=== PATIENT | female | born 1995 | race Caucasian/White ===

== ENCOUNTER → 2019-03-14 | Outpatient (CLI) | payer OTHER | LOC: LAB 15:03 → LAB SHORT 15:03 | DX: Z34.80 Encounter for supervision of other normal pregnancy, unspecified trimester (principal) | CPT/HCPCS: 83036 ==

== ENCOUNTER → 2019-04-11 | Outpatient (CLI) | payer OTHER ==
[2019-04-14 02:11] LABS: CHLAMYDIA TRACHOMATIS, NAA Negative (Negative); NEISSERIA GONORRHOEAE, NAA Negative (Negative)
== END ==
LOC: LAB 19:17 → LAB SHORT 19:17
PROVIDERS: Registered Nurse Community Health
DX: Z34.80 Encounter for supervision of other normal pregnancy, unspecified trimester (principal)
CPT/HCPCS: 87491; 87591

== ENCOUNTER → 2019-06-06 | Outpatient (CLI) | payer OTHER ==
[~2019-06-06] MED LIST: ALBU90OI INH; Zithromax250 MG PO
[2019-06-06 19:55] LABS: Hematocrit 31.8 % (33.0-51.0); Hemoglobin 9.7 g/dL (11.5-16.0)
== END ==
LOC: LAB 19:07 → LAB SHORT 19:07 → LAB FUT 06-05 11:10 → EDSTATUS 06-05 11:10
PROVIDERS: Registered Nurse Community Health
DX: Z34.80 Encounter for supervision of other normal pregnancy, unspecified trimester (principal)
CPT/HCPCS: 82950; 85014; 85018

== ENCOUNTER 2020-03-27 16:24 | Emergency (ER) | payer OTHER ==
[~2020-03-27] VITALS: Ht 152.4 cm; Wt 104.3 kg
[~2020-03-27 16:24] MED LIST changes: +IBUP800 PO; +Percocet 5-3251 EACH PO
[2020-03-27 17:56] LABS: BASOPHILS ABSOLUTE AUTO 0.07 K/mm3 (0.00-0.23); BASOPHILS PERCENT AUTO 1 % (0-2); EOSINOPHILS ABSOLUTE AUTO 0.13 K/mm3 (0.00-0.68); EOSINOPHILS PERCENT AUTO 1 % (0-6); Hematocrit 36.3 % (33.0-51.0); Hemoglobin 11.2 g/dL (11.5-16.0); IMMATURE GRAN ABSOLUTE AUTO 0.03 K/mm3 (0.00-0.10); IMMATURE GRAN PERCENT AUTO 0 % (0-1); LYMPHOCYTES ABSOLUTE AUTO 1.85 K/mm3 (0.84-5.20); LYMPHOCYTES PERCENT AUTO 17 % (21-46); MONOCYTES ABSOLUTE AUTO 0.67 K/mm3 (0.16-1.47); MONOCYTES PERCENT AUTO 6 % (4-13); Mean Corpuscular HGB 22.3 pg (26.0-34.0); Mean Corpuscular HGB Conc 30.9 g/dL (31.5-36.5); Mean Corpuscular Volume 72 fL (80-100); Mean Platelet Volume 10.5 fL (9.1-12.4); NEUTROPHILS ABSOLUTE AUTO 8.19 K/mm3 (1.96-9.15); NEUTROPHILS PERCENT AUTO 75 % (41-73); Platelet Count 370 K/mm3 (150-400); RDW Coefficient Variation 18.9 % (11.7-14.2); RDW Standard Deviation 48.4 fL (35.1-46.3); Red Blood Cell Count 5.02 M/mm3 (3.80-5.20); White Blood Cell Count 10.94 K/mm3 (4.00-11.30)
[2020-03-27 18:13] LABS: Alanine Aminotransfer (ALT/SGP 24 U/L (12-78); Albumin, Blood 3.3 g/dL (3.4-5.0); Albumin/Globulin Ratio 0.8 (0.8-1.8); Alk Phos 149 U/L (50-136); Anion Gap 5 mmol/L (6-16); Aspartate Aminotrans (AST/SGOT 11 U/L (12-37); Bilirubin, Total 0.1 mg/dL (0.1-1.0); Blood Urea Nitrogen 17 mg/dL (8-24); Bun/Creatinine Ratio 16.8 (12.0-20.0); CO2, Blood 28 mmol/L (21-32); Chloride, Blood 110 mmol/L (98-108); Creatinine, Blood 1.01 mg/dL (0.40-1.00); Globulin, Blood 4.4 g/dL (2.2-4.0); Glomerular Filtration Rate >60 (60-); Glucose, Blood 98 mg/dL (70-99); Potassium, Blood 3.7 mmol/L (3.5-5.5); Sodium, Blood 143 mmol/L (136-145); Total Protein, Blood 7.7 g/dL (6.4-8.2)
== END 2020-03-27 18:59 | disposition home or self-care (01) ==
LOC: ER 16:24
PROVIDERS: Physician Assistant
DX: G44.209 Tension-type headache, unspecified, not intractable (principal)
CPT/HCPCS: 36415; 80053; 85025; 96374; 99283-25; J1885

== ENCOUNTER 2021-01-17 12:39 | Emergency (ER) | payer OTHER ==
[~2021-01-17] VITALS: Ht 152.4 cm; Wt 97.5 kg
== END 2021-01-17 14:38 | disposition home or self-care (01) ==
LOC: ER 12:39
DX: S93.401A Sprain of unspecified ligament of right ankle, initial encounter (principal); S93.601A Unspecified sprain of right foot, initial encounter; W22.8XXA Striking against or struck by other objects, initial encounter
CPT/HCPCS: 73630; 99283-25

== ENCOUNTER → 2022-01-28 | Outpatient (CLI) | payer OTHER ==
[2022-01-30 04:10] LABS: CHLAMYDIA TRACHOMATIS, NAA Negative (Negative)
== END | disposition home or self-care (01) ==
LOC: LAB 14:13 → LAB SHORT 14:13
PROVIDERS: Registered Nurse Community Health
DX: Z34.91 Encounter for supervision of normal pregnancy, unspecified, first trimester (principal)
CPT/HCPCS: 87491; 87591; G0123

== ENCOUNTER 2022-04-21 17:15 | Observation (INO) | payer OTHER ==
[~2022-04-21] VITALS: Ht 157.5 cm; Wt 109.5 kg
[~2022-04-21 17:15] MED LIST changes: +CEFD300 PO
[2022-04-21 18:19] LABS: BASOPHILS ABSOLUTE AUTO 0.04 K/mm3 (0.00-0.23); BASOPHILS PERCENT AUTO 1 % (0-2); EOSINOPHILS ABSOLUTE AUTO 0.07 K/mm3 (0.00-0.68); EOSINOPHILS PERCENT AUTO 1 % (0-6); Hematocrit 28.5 % (33.0-51.0); Hemoglobin 9.4 g/dL (11.5-16.0); IMMATURE GRAN ABSOLUTE AUTO 0.01 K/mm3 (0.00-0.10); IMMATURE GRAN PERCENT AUTO 0 % (0-1); LYMPHOCYTES ABSOLUTE AUTO 0.89 K/mm3 (0.84-5.20); LYMPHOCYTES PERCENT AUTO 16 % (21-46); MONOCYTES ABSOLUTE AUTO 0.63 K/mm3 (0.16-1.47); MONOCYTES PERCENT AUTO 11 % (4-13); Mean Corpuscular Volume 79 fL (80-100); Mean Platelet Volume 9.7 fL (9.1-12.4); NEUTROPHILS ABSOLUTE AUTO 3.91 K/mm3 (1.96-9.15); NEUTROPHILS PERCENT AUTO 70 % (41-73); Platelet Count 241 K/mm3 (150-400); RDW Coefficient Variation 15.4 % (11.7-14.2); RDW Standard Deviation 44.2 fL (35.1-46.3); Red Blood Cell Count 3.62 M/mm3 (3.80-5.20); White Blood Cell Count 5.55 K/mm3 (4.00-11.30)
[2022-04-21 18:45] LABS: Source, Urine Clean Catch
[2022-04-21 19:14] LABS: Appearance, Urine Hazy (Clear); Bilirubin, Urine Neg (Neg); Blood, Urine 5+ (Neg); Color, Urine Amber (P-Yellow); Glucose Qualitative, Urine Neg (Neg); Ketones, Urine Neg (Neg); Leukocyte Esterase, Urine Neg (Neg); Nitrite, Urine Neg (Neg); Protein, Urine 2+ (Neg); Specific Gravity, Urine 1.015 (1.003-1.022); Urobilinogen, Urine NORM (Normal); pH, Urine 6.5 (5.0-8.0)
[2022-04-21 19:21] LABS: Albumin, Blood 2.4 g/dL (3.4-5.0); Albumin/Globulin Ratio 0.6 (0.8-1.8); Bilirubin, Total 0.3 mg/dL (0.1-1.0); Bun/Creatinine Ratio 15.5 (12.0-20.0); Calcium, Blood 8.5 mg/dL (8.5-10.1); Creatinine, Blood 0.78 mg/dL (0.40-1.00); Globulin, Blood 4.2 g/dL (2.2-4.0); Potassium, Blood 3.7 mmol/L (3.5-5.5); Total Protein, Blood 6.6 g/dL (6.4-8.2)
[2022-04-21 19:31] LABS: Bacteria Few /hpf; Red Blood Cells, Urine 50-100 /hpf (0-2); Squamous Epithelial Cells Few /hpf (Few); White Blood Cells, Urine 0-2 /hpf (0-5)
--- NOTE | 2022-04-22 07:30 | NUR ---
pt blood product consent signed, pt has 2 units of blood type and crossed to give if she starts bleeding, pt denies any bleeding, repors the last few times scant on her toilet paper, talked about linda red bleeding, pink discharge or brown brick colored blood. pt will save toilet paper for rn to see due to scant vag bleeding pt has a regular breakfast food tray at bedside
--- NOTE | 2022-04-22 08:15 | NUR ---
PT UP TO BATHROOM, REPORTS JUST A SCANT AMOUNT OF OLD BROWN COLOR ON TOILET PAPER, WE DISCUSSED THIS IS HER OLD BLOOD FROM YESTERDAY, PT DENIES ANY NEW GILES RED BLEEDING, PT IS A LOW FOWLERS TO A LOW MED FOWLERS IN BED, ENCOURAGED NOT TO SIT STRAIGHT UP ON CERVIX.
--- NOTE | 2022-04-22 11:45 | NUR ---
Assumed care of Pt. Pt here for pre term bleeding with placenta previa. Pt remains stable at this and provider plans D/C home later this shift if bleeding remains stable. Pt educated on S&S of when to notify nurse.
[2022-04-22 14:25] LABS: BASOPHILS ABSOLUTE AUTO 0.04 K/mm3 (0.00-0.23); BASOPHILS PERCENT AUTO 1 % (0-2); EOSINOPHILS ABSOLUTE AUTO 0.08 K/mm3 (0.00-0.68); EOSINOPHILS PERCENT AUTO 1 % (0-6); Hematocrit 30.4 % (33.0-51.0); Hemoglobin 9.8 g/dL (11.5-16.0); IMMATURE GRAN ABSOLUTE AUTO 0.01 K/mm3 (0.00-0.10); IMMATURE GRAN PERCENT AUTO 0 % (0-1); LYMPHOCYTES ABSOLUTE AUTO 1.32 K/mm3 (0.84-5.20); LYMPHOCYTES PERCENT AUTO 21 % (21-46); MONOCYTES PERCENT AUTO 10 % (4-13); Mean Corpuscular HGB 25.5 pg (26.0-34.0); Mean Corpuscular HGB Conc 32.2 g/dL (31.5-36.5); Mean Corpuscular Volume 79 fL (80-100); Mean Platelet Volume 9.9 fL (9.1-12.4); NEUTROPHILS ABSOLUTE AUTO 4.17 K/mm3 (1.96-9.15); NEUTROPHILS PERCENT AUTO 67 % (41-73); Platelet Count 270 K/mm3 (150-400); RDW Coefficient Variation 15.7 % (11.7-14.2); RDW Standard Deviation 45.2 fL (35.1-46.3); Red Blood Cell Count 3.84 M/mm3 (3.80-5.20); White Blood Cell Count 6.22 K/mm3 (4.00-11.30)
--- NOTE | 2022-04-22 18:39 | NUR ---
PT D/C BO, D/C INSTRUCTIONS REVIEWED AND QUESTIONS ANSWERED. PT D/C BY W/C
== END 2022-04-22 18:45 | disposition home or self-care (01) ==
LOC: BC 17:15 → OBS 17:15 → BC 18:47
PROVIDERS: ADMIT Registered Nurse Community Health
DX: O44.12 Complete placenta previa with hemorrhage, second trimester (principal); Z3A.22 22 weeks gestation of pregnancy
CPT/HCPCS: 36415; 76815; 80053; 81001; 81003; 85025; 86850; 86900; 86901; 96365; 99213; J2916

== ENCOUNTER 2022-04-25 13:18 | Inpatient (IN) | payer OTHER ==
[~2022-04-25] VITALS: Ht 157.5 cm; Wt 109.0 kg
--- NOTE | 2022-04-25 22:30 | NUR ---
PT USED RESTROOM APPROX 2129. PT STATES NO NEW BLEEDING, PT HAD OLD BROWN/FLAKEY BLOOD ON TOILET PAPER. PT STATES HER CRAMPING IS GETTING BETTER
--- NOTE | 2022-04-26 04:36 | NUR ---
AT APPROX 0230 PT GOT UP TO USE RESTROOM. NO BLOOD IN HAT AND VERY LIGHT STREAK OF OLD/BROWN BLOOD ON TOILET PAPER.
--- NOTE | 2022-04-26 04:38 | NUR ---
AT APPROX 0435 PT GOT UP TO USE RESTROOM. PT HAS NO BLOOD IN URINE/HAT. VERY SMALL BROWN STREAK ON TOILET PAPER, PT REPORTS CRAMPING HAS GONE AWAY COMPLETLEY.
--- NOTE | 2022-04-26 08:09 | NUR ---
SLEEPING QUIETLY SUPPORT PERSON AT BEDSIDE.
== END 2022-04-26 12:30 | disposition home or self-care (01) | DRG 833 ==
LOC: OBS 13:18 → BC 13:18 → OBS 17:58 → BC 17:59
PROVIDERS: ADMIT Registered Nurse Community Health
DX: O99.891 Other specified diseases and conditions complicating pregnancy (principal); R10.30 Lower abdominal pain, unspecified; Z3A.23 23 weeks gestation of pregnancy
CPT/HCPCS: A9270

== ENCOUNTER 2023-06-19 11:11 | Emergency (ER) | payer OTHER ==
[~2023-06-19] VITALS: Ht 152.4 cm; Wt 113.5 kg
[2023-06-19 11:15] VITALS: BP 141/89
[2023-06-19] MEDS ORDERED: CYCL10 PO (13:20)
[2023-06-19] MEDS ORDERED: LIDO700A20 TOP (13:20)
[2023-06-19] MEDS ORDERED: Cyclobenzaprine HCl 10 MG Tab PO ONE (13:20)
[2023-06-19] MEDS ORDERED: Acetaminophen 500 MG Tab PO ONE (13:20)
[2023-06-19] MEDS ORDERED: Ketorolac Tromethamine 30mg Vial IM ONE (13:20)
[2023-06-19] MEDS ORDERED: Lidocaine 4% 1 Patch TOP ONE (13:20)
== END 2023-06-19 13:31 | disposition home or self-care (01) ==
LOC: ER 11:11
DX: S39.012A Strain of muscle, fascia and tendon of lower back, initial encounter (principal); X58.XXXA Exposure to other specified factors, initial encounter
CPT/HCPCS: A9270; J1885

== ENCOUNTER → 2023-08-18 | Outpatient (CLI) | payer OTHER ==
[~2023-08-18] MED LIST changes: +CYCL10 PO; +LIDO700A20 TOP
[2023-08-18 15:22] LABS: BASOPHILS ABSOLUTE AUTO 0.07 K/mm3 (0.00-0.23); BASOPHILS PERCENT AUTO 1 % (0-2); EOSINOPHILS ABSOLUTE AUTO 0.16 K/mm3 (0.00-0.68); EOSINOPHILS PERCENT AUTO 2 % (0-6); Hematocrit 33.9 % (33.0-51.0); Hemoglobin 10.2 g/dL (11.5-16.0); IMMATURE GRAN ABSOLUTE AUTO 0.03 K/mm3 (0.00-0.10); IMMATURE GRAN PERCENT AUTO 0 % (0-1); LYMPHOCYTES ABSOLUTE AUTO 2.08 K/mm3 (0.84-5.20); LYMPHOCYTES PERCENT AUTO 21 % (21-46); MONOCYTES ABSOLUTE AUTO 0.46 K/mm3 (0.16-1.47); MONOCYTES PERCENT AUTO 5 % (4-13); Mean Corpuscular HGB 23.1 pg (26.0-34.0); Mean Corpuscular HGB Conc 30.1 g/dL (31.5-36.5); Mean Corpuscular Volume 77 fL (80-100); Mean Platelet Volume 10.1 fL (9.1-12.4); NEUTROPHILS ABSOLUTE AUTO 7.11 K/mm3 (1.96-9.15); NEUTROPHILS PERCENT AUTO 72 % (41-73); Platelet Count 370 K/mm3 (150-400); Red Blood Cell Count 4.42 M/mm3 (3.80-5.20); White Blood Cell Count 9.91 K/mm3 (4.00-11.30)
[2023-08-18 15:30] LABS: Alanine Aminotransfer (ALT/SGP 27 U/L (12-78); Albumin, Blood 3.1 g/dL (3.4-5.0); Albumin/Globulin Ratio 0.8 (0.8-1.8); Alk Phos 86 U/L (50-136); Anion Gap 6 mmol/L (3-11); Aspartate Aminotrans (AST/SGOT 18 U/L (12-37); Bilirubin, Total 0.2 mg/dL (0.1-1.0); Blood Urea Nitrogen 17 mg/dL (8-24); CHOL/HDL RATIO 3.4; CO2, Blood 28 mmol/L (21-32); Calcium, Blood 8.6 mg/dL (8.5-10.1); Chloride, Blood 109 mmol/L (98-108); Cholesterol 170 mg/dL (50-200); Globulin, Blood 4.1 g/dL (2.2-4.0); Glucose, Blood 97 mg/dL (70-99); HDL Cholesterol 50 mg/dL (>39); LDL/HDL RATIO 1.9; Low Density Lipoprotein Chol 95 mg/dL (0-110); Potassium, Blood 3.8 mmol/L (3.5-5.5); Sodium, Blood 139 mmol/L (136-145); Total Protein, Blood 7.2 g/dL (6.4-8.2); Triglycerides 125 mg/dL (30-140); Very Low Density Lipoprot Chol 25 mg/dL (6-28)
[2023-08-18 15:37] LABS: Bun/Creatinine Ratio 16.7 (12.0-20.0); Creatinine, Blood 1.02 mg/dL (0.40-1.00); Glomerular Filtration Rate 77 (60-); Thyroid Stimulating Hormone 0.867 uIU/mL (0.360-4.800)
[2023-08-20 11:48] LABS: HIV 1,2 COMBO ANTIGEN/ANTIBODY Negative (Negative)
[2023-08-20 13:42] LABS: HEPATITIS C AB CIA INTERP Negative (Negative); HEPATITIS C ANTIBODY CIA INDEX 0.05 IV
== END ==
LOC: LAB SHORT 14:08 → LAB 14:08
PROVIDERS: Family Medicine
DX: E66.01 Morbid (severe) obesity due to excess calories (principal); Z68.42 Body mass index [BMI] 45.0-49.9, adult; R53.83 Other fatigue; Z11.3 Encounter for screening for infections with a predominantly sexual mode of transmission; Z13.29 Encounter for screening for other suspected endocrine disorder
CPT/HCPCS: 80053; 80061; 83036; 84443; 85025; 86592; 86803; 87389

== ENCOUNTER 2023-10-04 05:17 | Emergency (ER) | payer OTHER ==
[~2023-10-04] VITALS: Ht 154.9 cm; Wt 108.9 kg
[2023-10-04 05:32] VITALS: BP 154/104
[2023-10-04] MEDS ORDERED: Ibuprofen 600 MG Tab PO ONE (05:45)
== END 2023-10-04 06:21 | disposition home or self-care (01) ==
LOC: ER 05:17
DX: S93.401A Sprain of unspecified ligament of right ankle, initial encounter (principal); K21.9 Gastro-esophageal reflux disease without esophagitis; X50.1XXA Overexertion from prolonged static or awkward postures, initial encounter
CPT/HCPCS: 73610; 99283-25; A9270

== ENCOUNTER 2024-02-03 10:20 | Emergency (ER) | payer OTHER ==
[~2024-02-03] VITALS: Ht 154.9 cm; Wt 111.1 kg
[2024-02-03 10:30] VITALS: BP 154/85
[2024-02-03] MEDS ORDERED: Ketorolac Tromethamine 15mg Vial IM ONE (10:35)
== END 2024-02-03 12:05 | disposition home or self-care (01) ==
LOC: ER 10:20
DX: S39.92XA Unspecified injury of lower back, initial encounter (principal); K21.9 Gastro-esophageal reflux disease without esophagitis; W10.9XXA Fall (on) (from) unspecified stairs and steps, initial encounter
CPT/HCPCS: 72170; 96372; 99283-25; J1885